=== PATIENT | male | born 1950 | race Caucasian/White ===

== ENCOUNTER → 2017-10-02 08:57 | Outpatient (CLI) | payer MEDICARE, SELFPAY ==
--- NOTE | 2017-10-02 09:03 | CT_ITS ---
STUDY: CT ABDOMEN AND PELVIS WITHOUT CONTRAST REASON FOR EXAM: Male, 67 years old. Left flank pain. RADIATION DOSAGE (If Supplied By Facility): CTDIvol = ( 6.76 ) mGy, DLP = ( 314.19 ) mGycm TECHNIQUE: Transaxial images were obtained from the dome of the diaphragm to the symphysis pubis without oral contrast, and without intravenous contrast. Sagittal and coronal images were reconstructed. Individualized dose optimization techniques were used for this CT. COMPARISON: None available. FINDINGS: CT abdomen without IV or GI contrast. The visualized lower lung bases appear clear of focal pulmonary consolidation or bronchograms or pleural effusion. Minimal atelectasis or scarring left greater right lung bases. The visualized portions of the heart appear within normal limits. Visualized distal esophagus shows no large gross bulky lesion with above limitations. Liver appears enlarged, 22.2 cm sagittal and shows Hounsfield units 41 consistent with mild diffuse fatty infiltration and shows no large gross bulky lesion. Normal appearing extrahepatic biliary system. Gallbladder small in size, likely moderately contracted and shows dependent gallbladder neck round smoothly marginated high attenuation intraluminal cholelithiasis, approximate 1 cm diameter. Normal spleen. Normal pancreas. Normal bilateral adrenal glands. Normal right kidney. Left kidney shows moderate hydronephrosis and hydroureter is seen of a mild degree which can be followed distally to the UVJ where an approximate 0.5 x 0.5 x 0.9 cm oval high attenuation calculus or calculi are noted obstructing the distal ureter. Left kidney also shows posterior lateral superior pole subcortical round smooth margin 1.7 cm diameter subtle low-attenuation lesion with central Hounsfield units -7.3, may represent angiomyolipoma but other etiologies are not excluded without IV contrast. Left kidney also shows nonobstructive superior collecting system calculus, proximal 0.5 cm diameter. Normal visualized stomach. Normal small intestine. Normal colon. The appendix is not definitively visualized but no thickened appendix or pericecal face [place]/abnormal fluid collections identified. Normal abdominal aorta. Normal inferior vena cava. Normal retroperitoneum. No abdominal, pelvic or visualized inguinal large gross bulky adenopathy identified. Small moderately filled urinary bladder. Symmetric normal size seminal vesicles. Prostate is enlarged, approximate 4.5 x 5.3 cm. Normal abdominal wall. No ventral/angle bowel herniation identified. No acute osseous process identified. Fairly symmetric bilateral anterior osseous fusion SI joints noted suggestive of ankylosing spondylitis. CT/Abdomen/Pelvis without Cont IMPRESSION: Left moderate hydronephrosis due to left distal obstruction by calculi or calculus measuring approximately 0.5 x 0.5 x 0.9 cm. Nonobstructive left nephrolithiasis appear collecting system 0.5 cm diameter nephrolithiasis. Hepatomegaly with mild diffuse hepatic fatty infiltration. Left renal superior pole possible angiomyolipoma but without IV contrast, other etiologies are not excluded. If clinically indicated, renal ultrasound may be more helpful. Cholelithiasis without CT finding of acute cholecystitis. Prostatomegaly. Clinical correlation recommended. CT finding suggestive ankylosing spondylitis. Clinical correlation recommended. Limitations above. Electronically Signed: Imer Davis, at 9:57 EDT Tel , Service support ,
== END ==
PROVIDERS: Family Provider Nurse Practitioner Primary Care; PCP Nurse Practitioner Primary Care; Visit Provider Urology
DX: N20.0 Calculus of kidney (principal); N20.1 Calculus of ureter
CPT/HCPCS: 74176

== ENCOUNTER 2017-10-03 10:43 | Day surgery (SDC) | payer MEDICARE, SELFPAY ==
[2017-10-03] VITALS (7 sets, daily range): BP systolic 119–156; BP diastolic 60–75; PULSE 86–107; RESP 18–97; TEMP 36.2–37.1; O2SAT 93–97; BMI 42.4
--- NOTE | 2017-10-03 11:10 | RAD_ITS ---
STUDY: X-RAY - ABDOMEN/PELVIS REASON FOR EXAM: Male, 67 years old. Left kidney stone history. TECHNIQUE: AP supine abdomen pelvis imaging obtained, 2 images. COMPARISON: No prior abdomen or pelvis radiographic imaging available. Correlation CT abdomen/pelvis 10/02/2017. FINDINGS: Diaphragm and lower lung bases are not imaged which limits sensitivity for free intraperitoneal air as does supine positioning. Air and fecal material outlining the visualized portions of the colon without air filled dilated small bowel loop or air-fluid level seen. No abnormal calcification overlies the gallbladder, right renal or appendix regions although evaluation is limited due to overlying bowel contents. However, left kidney shows tiny round punctate density overlying the inferior pole calyceal system, approximate 0.4 cm diameter partially obscured by overlapping rib. Projecting over the inferior lateral pelvis, tiny round smooth margin calcification is approximately 0.38 cm diameter which appears to correspond to the left distal ureter calculus seen with prior CT. Nonacute soft tissue structures. Nonacute visualized osseous structures. RAD/Abdomen Single View IMPRESSION: Tiny left nephrolithiasis projecting over left kidney shadow in tiny left inferior lateral pelvis calcification, likely corresponds left distal ureteral calculus seen with prior CT abdomen/pelvis 10/02/2017. Clinical correlation recommended. Electronically Signed: Imer Davis, at 13:07 EDT Tel , Service support ,
[2017-10-03 12:00] LABS: Bedside Glucose 126 mg/dL (70-110)
[2017-10-03] MEDS: Cefazolin 2 GM in 0.9% Normal Saline 100 ML IV (12:12)
--- NOTE | 2017-10-03 13:26 | DCINST_ITS ---
Discharge Diet: Light diet - advance as tolerated Discharge Activity: Return to Normal Activity Instructions: Shock Wave Lithotripsy Allergies/Adverse Reactions: Allergies fluoxetine [From Prozac] Adverse Reaction (Verified 10/03/17 11:38) Unknown Medications to take at Discharge Allopurinol [Zyloprim] 300 mg PO QHS 10/02/17 Amiloride HCl 5 mg PO BID 10/02/17 Amlodipine [Norvasc] 2.5 mg PO QHS 10/02/17 Atorvastatin Calcium [Lipitor] 40 mg PO DAILY 10/02/17 Dulaglutide [Trulicity] 1.5 mg SQ WE 10/02/17 Dutasteride/Tamsulosin HCl [[place] 0.5-0.4 mg Capsule] 1 each PO DAILY 10/02/17 Ergocalciferol [Vitamin D] 50,000 unit PO Q7D 10/02/17 Esomeprazole Mag Trihydrate [Nexium] 40 mg PO DAILY 10/02/17 Insulin Human 75/25 [Humalog Mix 75-25 Kwikpen] 30 unit SQ BID 10/02/17 Insulin Human 75/25 [Humalog Mix 75-25 Kwikpen] 36 unit SQ DAILY 10/02/17 Meloxicam [Mobic] 15 mg PO DAILY 10/02/17 Metformin HCl [Glucophage Xr] 1,000 mg PO BID 10/02/17 Nebivolol HCl [Bystolic (Beta Julieta)] 20 mg PO QHS 10/02/17 Pioglitazone [Actos] 30 mg PO DAILY 10/02/17 Sertraline HCl [Zoloft] 100 mg PO DAILY 10/02/17 Telmisartan 80 mg PO DAILY 10/02/17 Ciprofloxacin [Cipro] 500 mg PO BID #6 tab 10/03/17 Hydrocodone/Acetaminophen [[place] 5-325 Tablet] 1 ea PO Q6H PRN PRN 5 Days #14 tab 10/03/17 The following prescriptions were given: Hydrocodone/Acetaminophen [[place] 5-325 Tablet] 1 ea PO Q6H PRN PRN 5 Days #14 tab PRN Reason: Pain Ciprofloxacin [Cipro] 500 mg PO BID #6 tab Primary Care Physician: Ernestine Fitzpatrick NP-C [Primary Care Provider] - Test Results: Test results from this visit will be discussed in further detail at your follow- up appointment, if applicable. Please Follow Up With: Burton Reyes MD When: in 2 weeks, please call to make an appointment.
--- NOTE | 2017-10-03 13:27 | PCM.OPRPT ---
Report of Operation Date of Procedure: 10/03/17 Pre-Operative Diagnosis: Left ureteral calculi Post-Operative Diagnosis: Same Surgery/Procedure Performed:: Cystoscopy, left ureteroscopy and left extracorporeal shockwave lithotripsy Description of Surgical Findings:: 67-year-old male taken back to the operating room after smooth induction of general anesthesia he was placed supine on the table we then positioned the patient so we could see the pelvis we the fluoroscope is a very large patient BMI was 42. Hard to see the distal stone in the left side under fluoroscopy so the patient's penis were prepped and draped in usual sterile fashion went into the bladder with a 21 [place] flexible ureteroscope and identified the left ureteral orifice used a wire up the left ureteral orifice and again we looked in with fluoroscopy, on fluoroscopy we thought we could see a small stone in distal ureter we start treating this and then I went over the wire with the flexible ureteroscope just to verify it got into the ureter and could see the stone in the area of the distal ureter we then repositioned the F2 focal point on the stone I pulled out the stent and the ureteroscope and then we finished treatment of the stone with shockwave lithotripsy a total of 4000 shocks delivered to the stone at a rate between 1 9820 shocks per minute. At the end of the treatment cycle there is no visible stone seen under x-ray patient anesthetic was reversed plan to see him back in a few weeks with an x-ray for follow-up. Type of Anesthesia:: General Drains: none - Admit VTE Documentation VTE Present on Admission: No VTE Mechan Device Prophylaxis: SCD's
[2017-10-03 14:00] LABS: Bedside Glucose 148 mg/dL (70-110)
== END 2017-10-03 15:35 | disposition home or self-care (01) ==
LOC: SDC 10:43 → AC 11:20
PROVIDERS: Family Provider Nurse Practitioner Primary Care; PCP Nurse Practitioner Primary Care; Visit Provider Urology
PROC: (CPT 50590; principal; 2017-10-03 12:20)
DX: N20.1 Calculus of ureter (principal); N40.1 Benign prostatic hyperplasia with lower urinary tract symptoms; I10 Essential (primary) hypertension; E78.5 Hyperlipidemia, unspecified; F32.9 Major depressive disorder, single episode, unspecified; E66.9 Obesity, unspecified; E11.9 Type 2 diabetes mellitus without complications; K21.9 Gastro-esophageal reflux disease without esophagitis; F41.9 Anxiety disorder, unspecified; G47.30 Sleep apnea, unspecified; I27.20 Pulmonary hypertension, unspecified; Z68.41 Body mass index [BMI] 40.0-44.9, adult; Z86.2 Personal history of diseases of the blood and blood-forming organs and certain disorders involving the immune mechanism; Z85.46 Personal history of malignant neoplasm of prostate; Z85.828 Personal history of other malignant neoplasm of skin; Z79.4 Long term (current) use of insulin; Z79.82 Long term (current) use of aspirin; Z79.899 Other long term (current) drug therapy
CPT/HCPCS: 00873; 52356; 74018; 82962; J7120; C1769

== ENCOUNTER → 2017-10-16 12:37 | Outpatient (CLI) | payer MEDICARE, SELFPAY ==
[2017-10-16 15:44] LABS: Anion Gap 12 (5-15); BUN 15 mg/dL (7-18); BUN/Creat Ratio 16.3 RATIO (10-20); Chloride 108 mmol/L (98-107); Creatinine, Serum 0.92 mg/dL (0.70-1.30); EST Glomerular Filtration Rate 87 mL/min (>60); Est Glom Filt Rate - Afr Amer 105 mL/min (>60); Glucose 140 mg/dL (74-106); Potassium 4.2 mmol/L (3.5-5.1); Sodium Level 145 mmol/L (136-145)
== END ==
PROVIDERS: Family Provider Nurse Practitioner Primary Care; PCP Nurse Practitioner Primary Care; Visit Provider Urology
DX: N20.0 Calculus of kidney (principal)
CPT/HCPCS: 36415; 74018; 80048

== ENCOUNTER → 2019-09-23 | Outpatient (CLI) | payer MEDICARE, SELFPAY ==
--- NOTE | 2019-09-24 11:11 | PFT ---
INTRODUCTION: The patient is a 69-year-old male that presents for pulmonary function studies secondary to a diagnosis of shortness of breath. Respiratory therapy reports good patient effort. Bronchodilators were used during testing. INTERPRETATION: Forced expiration spirometry demonstrates no evidence of a large airways obstructive ventilatory defect. There was no significant response to aerosolized bronchodilators. Spirograms are of good quality and plateau normally. The respiratory flow volume loop appears normal. Body plethysmography was performed and reveals a decreased TLC to 5.02 L, 72% of predicted, indicative of a mild restrictive ventilatory impairment. Diffusing capacity by single breath CO is within normal limits at 93% of predicted. IMPRESSION: Isolated mild restrictive ventilatory impairment.
== END | disposition home or self-care (01) ==
PROVIDERS: PCP Nurse Practitioner Primary Care; Referring Provider Nurse Practitioner Primary Care; Visit Provider Nurse Practitioner Primary Care
DX: R06.02 Shortness of breath (principal)
CPT/HCPCS: 94060; 94726; 94729

== ENCOUNTER → 2020-02-29 08:33 | Outpatient (CLI) | payer MEDICARE, SELFPAY ==
--- NOTE | 2020-02-29 08:48 | RAD_ITS ---
PROCEDURE: Sniff test. DATE OF EXAMINATION: 02/29/2020. INDICATION: Male, 69 years old. Dyspnea on exertion. FLUOROSCOPY TIME (if supplied): (12 seconds) minutes/seconds. 2 images were obtained. Normal movement of both right and left hemidiaphragms. RAD/Fluoroscopy 1 Hr or Less IMPRESSION: Normal movement of both the right and left hemidiaphragms. Electronically Signed: Franco Lancaster, at 9:33 EST , Service support ,
[2020-02-29 09:41] LABS: Allen Test Positive; Base Excess 1 mmol/L (-2 to +2); Bicarbonate 26.1 mmol/L (22-26); Blood Gas Specimen Type ART; O2 Delivery Device Room Air; PO2 77 mmHG (75-100); SITE R Radial; SO2 95 % (95-99); Total Carbon Dioxide 27 mmol/L; pCO2 42.1 mmHg (35-45)
== END ==
PROVIDERS: PCP Nurse Practitioner Primary Care; Referring Provider Internal Medicine Pulmonary Disease; Visit Provider Internal Medicine Pulmonary Disease
DX: G47.33 Obstructive sleep apnea (adult) (pediatric) (principal); R06.00 Dyspnea, unspecified; R09.02 Hypoxemia
CPT/HCPCS: 36600; 76000; 82803

== ENCOUNTER → 2023-09-18 | Outpatient (CLI) | payer MEDICARE, SELFPAY ==
--- NOTE | 2023-09-18 09:51 | CT_ITS ---
STUDY: CT LEFT SHOULDER REASON FOR EXAM: Male, 73 years old. LT SHOULDER FX RADIATION DOSAGE (If Supplied By Facility): CTDIvol = ( 40.60 ) mGy, DLP = ( 966.34 ) mGycm TECHNIQUE: The patient was scanned in a multi detector CT scanner. High resolution transaxial imaging was performed without the administration of intravenous contrast material. Sagittal and coronal images were reconstructed. Individualized dose optimization techniques were used for this CT. COMPARISON: None. FINDINGS: There is mild osteoarthritis of the glenohumeral articulation, with mild articular joint space narrowing and mild osteoarthritic spurring. Normal glenoid rim, neck and visualized scapula. There is a nondisplaced spiral fracture of the proximal portion of the left femur originating at the surgical neck of the humerus extending towards the mid shaft of the humerus. No significant displacement is seen. Normal coracoid process. Normal visualized lateral clavicle. There is mild osteoarthritis with articular joint space narrowing. There is a Type II morphology (curved), with a neutral orientation. Soft tissue swelling. CT/Extremity Upper without Contra IMPRESSION: Nondisplaced spiral fracture of the proximal left femur from the level of the surgical neck of the humerus down to the mid shaft. No significant displacement is seen. Soft tissue swelling. Electronically Signed: Franco Lancaster MD at 11:16 EDT ,
== END | disposition home or self-care (01) ==
PROVIDERS: PCP Nurse Practitioner Primary Care; Referring Provider Specialist; Visit Provider Specialist
DX: S42.342A Displaced spiral fracture of shaft of humerus, left arm, initial encounter for closed fracture (principal); X58.XXXA Exposure to other specified factors, initial encounter
CPT/HCPCS: 73200